=== PATIENT | female | born 1940 | race Caucasian/White ===

== ENCOUNTER 2019-01-04 14:35 | Inpatient (IN) ==
[2019-01-04] MEDS ORDERED: ULTRAM PO PRN (15:49)
[2019-01-04] MEDS ORDERED: NS 1,000 ML IV SCH (15:49)
[2019-01-04] MEDS: DUONEB (A & A) INH SCH ×2 (16:16→21:15)
[2019-01-04 16:37] LABS: BASO# 0.02 X1000 (0.0-0.2); BASO% 0.1 % (0.0-0.8); HEMATOCRIT 35.2 % (37.0-47.0); IMM GRAN# 0.13 X1000 (0.0-0.04); IMM GRAN% 0.5 % (0.0-0.5); LYMPH# 1.24 X1000 (1.2-3.4); LYMPH% 4.4 % (20.5-51.1); MCHC 31.3 g/dL (33-37); MCV 86.5 FL (81-99); MONO# 1.89 X1000 (0.11-0.59); MONO% 6.8 % (1.7-9.3); MPV 10.2 FL (7.4-10.4); NEUT# 24.72 X1000 (1.4-6.5); NEUT% 88.2 % (42.2-75.2); PLT 259 X1000 (130-400); RBC 4.07 XMIL (4.2-5.4); RDW 13.5 % (11.5-14.5)
[2019-01-04 16:49] LABS: AGAP 14; ALB/GLOB RATIO 0.8; ALBUMIN 3.8 g/dL (3.5-5.0); ALKALINE PHOSPHATASE 70 U/L (32-104); BUN 37 mg/dL (8-22); CALCIUM 8.8 mg/dL (8.8-10.2); CHLORIDE 98 mmol/L (98-107); COSMO 282; CREATININE 1.3 mg/dL (0.5-0.9); ESTIMATED GFR 39; GLUCOSE 125 mg/dL (70-104); GOT 30 U/L (10-30); GPT < 5 U/L (10-36); POTASSIUM 3.5 mmol/L (3.5-5.1); SODIUM 136 mmol/L (136-145); TCO2 24 mmol/L (25-35); TOTAL BILIRUBIN 0.75 mg/dL (0.20-1.00); TOTAL PROTEIN 8.3 g/dL (6.3-8.3)
[2019-01-04 16:53] LABS: BANDS 8 % (0-1); LYMPHS 3 % (21-51); MONO 3 % (1-9); SEGS 86 % (42-75)
[2019-01-04] MEDS: DOXYCYCLINE 100 MG in NS 250 ML IV SCH (18:31)
--- NOTE | 2019-01-04 20:24 | HISTORY AND PHYSICAL ---
PRIMARY CARE PHYSICIAN: Kwaku Márquez MD CHIEF COMPLAINT: Chills, weakness, fall. HISTORY OF PRESENT ILLNESS: An 78-year-old white female with a complicated past medical history presents for evaluation of above-mentioned symptoms. Current history of present illness began yesterday. The patient states she awoke in her usual state of health and went to sikh without incident. While in sikh, patient developed a chill. She attributed this to the lack of heat in the sikh. Because of this, chill, she was forced to leave sikh early and returned home. Upon returning home, patient states she turned her heat on and wrapped up in a blanket. The patient states she drifted to sleep for several hours. Upon waking, the patient noted a significant sweat. She attempted to rise from her seat and unfortunately fell. Upon falling, she struck her chest and buttocks. EMS was contacted and assisted her to her feet. She did not agree to emergency department evaluation. Since that time, patient notes having diffuse soreness including her low back, buttock, and chest. Because of her soreness, patient contacted my office, and an appointment was made. Upon arrival, further evaluation was pursued, especially in the setting of the acute chill. White blood cell count was noted to be grossly elevated. Chest x-ray suggested underlying pneumonia. Urinalysis also returned slightly abnormal. Because of her grossly elevated white blood cell count, patient will be admitted to the hospital for full evaluation and management. Of note, patient states last week she had cough and congestion. She treated this with Mucinex DM. Patient denies current symptoms. She denies fevers, chills, dysuria, hematuria, pyuria, or change in bowel movements. She notes mild shortness of breath. PAST MEDICAL HISTORY: 1. Allergic rhinitis. 2. Diverticulosis. 3. Depression. 4. History of dysmenorrhea status post BARBARA/BSO in the . 5. Metabolic syndrome. 6. Reflux disease. 7. Hypertension. 8. Hypertriglyceridemia. 9. Hyperlipidemia. 10. Menopause. 11. Mild cognitive dysfunction. 12. Osteoarthritis. 13. Mildly overweight. 14. History of colonic polyps. 15. History of restrictive lung disease per spirometry in 2005. 16. History of xerostomia. 17. History of multiple episodes of sialoadenitis. 18. History of a left lower extremity DVT with some chronic changes. CURRENT MEDICATIONS: 1. Celebrex 200 mg daily. 2. Citalopram 20 mg daily. 3. Claritin 10 mg daily as needed. 4. CoQ10 of 100 mg daily. 5. Lisinopril 40 mg in the morning and 20 mg in the evening. 6. Hydrochlorothiazide 12.5 mg daily. 7. Mucinex DM twice daily as needed. 8. Pravastatin 20 mg at bedtime. 9. Tramadol 50 mg 1 to 2 tablets 3 times daily as needed. ALLERGIES: Patient answered no known drug allergies. SOCIAL HISTORY: Patient previously smoked 1-1/2 packs per day for 23 years. She stopped in 1980. She denies alcohol or illicit drug use. 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 She exercises by walking 2 to 3 times a week as tolerated. FAMILY HISTORY: Patient's father passed at age 39 secondary to unknown causes. Patient's mother passed at age 85 with complications of Alzheimer's dementia. REVIEW OF SYSTEMS: A 12 point review of systems was performed. Pertinent positives and negatives are noted in History of Present Illness. PHYSICAL EXAMINATION: VITAL SIGNS: Temperature 98.0 degrees, heart rate 105, respirations 16, blood pressure is 128/72. GENERAL: Well nourished, well developed, no acute distress. HEENT: Normocephalic, atraumatic. Pupils equal, round, and reactive to light. Extraocular muscles intact. Sclerae anicteric. [place] conjunctivae. Oral and nasopharynx clear and without exudate. NECK: Supple. No lymphadenopathy. No thyromegaly. No bruits auscultated. CARDIOVASCULAR: Slightly tachycardic. Regular rhythm. No significant murmurs, rubs, or gallops. PULMONARY: Minimal crackles at the left base. Adequate air movement. ABDOMEN: Soft, nontender, nondistended. Positive bowel sounds. EXTREMITIES: Moves all extremities well. No significant clubbing, cyanosis, or edema. DERMATOLOGIC: Evaluation reveals no evidence of rash. NEUROLOGIC: Cranial nerves 2 through 12 grossly intact. Motor and sensory grossly intact. PSYCHOLOGIC: Examination is appropriate. DIAGNOSTIC STUDIES: White blood cell count 28.0, hemoglobin 11.0, hematocrit 35.2, platelet count 259,000. Sodium 136, potassium 3.5, chloride 98, bicarbonate 24, BUN 37, creatinine 1.3, glucose 125, calcium 8.8, total bilirubin 0.75, total protein 8.3, albumin 3.8, alkaline phosphatase 70, AST 30, ALT less than 5. Chest x-ray suggests infiltrate in the mid left lung field. Urinalysis is pending. ASSESSMENT AND PLAN: An 78-year-old white female with a complicated past medical history as noted presents for evaluation of a fall. Upon questioning, patient describes having a hard chill yesterday followed by sweat. The weakness precipitated her fall. I am more concerned with her underlying illness. With grossly elevated white blood cell count, aggressive intervention will be warranted. We will treat as described below. 1. Admit to General Medicine. 2. Pneumonia. The patient's chest x-ray is most consistent. We will aggressively manage patient with Zosyn and doxycycline therapy. We will check blood cultures and urine cultures. We will start patient on DuoNeb. We will encourage aspiration precautions. We will follow patient's clinical course closely. 3. Abnormal urinalysis. This was noted at the office. Patient should have adequate coverage with the Zosyn and doxycycline therapy. We will repeat urine and culture in the hospital. 4. Fall. Patient recently suffered a fall. She complains of low back pain as well as some chest discomfort. The chest discomfort is largely pleuritic, likely secondary to her pneumonia. Low back pain will be treated supportively. 5. Chronic lower extremity deep vein thrombosis (DVT). We discussed this in detail. We consider resuming Xarelto, but in the setting of patient's acute illness and recent falls, I am concerned that this may not be the best option. For now, we will treat patient with aspirin therapy. She will be treated with low-dose Lovenox while hospitalized. 6. Hypertension. We will continue lisinopril therapy. We will monitor blood pressure closely while hospitalized. 7. Hyperlipidemia. We will continue pravastatin therapy. 8. Osteoarthritis. We will continue as-needed tramadol. 9. Fluid, electrolytes, nutrition. We will monitor electrolytes. Normal saline at KVO. Regular diet. 10. Prophylaxis. Patient will be placed on subcutaneous Lovenox. cc: Kwaku Márquez MD
[2019-01-04] MEDS: ZOSYN 3.375 GM in NS 50 ML IV SCH (21:02)
[2019-01-04] MEDS: PRAVACHOL PO SCH (21:03)
[2019-01-04] MEDS: PRINIVIL PO SCH (21:03)
[2019-01-04 21:04] LABS: URINE SOURCE CLEAN CATCH
[2019-01-04 21:06] LABS: BILIRUBIN URINE NEGATIVE (NEGATIVE); BLOOD URINE SMALL (NEGATIVE); COLOR YELLOW; GLUCOSE URINE NEGATIVE (NEGATIVE); KETONE URINE TRACE mg/dL (NEGATIVE); LEUKOCYTES URINE LARGE (NEGATIVE); NITRITE URINE NEGATIVE (NEGATIVE); PH URINE 5.5; PROTEIN URINE 100 mg/dL (NEGATIVE); SP GRAVITY URINE 1.021; TURBIDITY URINE HAZY (CLEAR); UROBILINOGEN URINE NORMAL (NORMAL)
[2019-01-04 21:07] LABS: UR EPITHELIAL CELLS <10 /HPF (<10); URINE BACTERIA NEGATIVE /HPF; URINE RBC <10 /HPF (<10); URINE WBC TNTC /HPF (<10)
[2019-01-04] MEDS: TYLENOL PO PRN (21:07)
[2019-01-05] MEDS: ZOSYN 3.375 GM in NS 50 ML IV SCH ×3 (01:51→13:37)
[2019-01-05] MEDS: DOXYCYCLINE 100 MG in NS 250 ML IV SCH (03:28)
[2019-01-05] MEDS: TYLENOL PO PRN (04:42)
--- NOTE | 2019-01-05 07:45 | Diag Imaging Result Doc PS360 ---
EXAM: CHEST-2 VIEWS 01/05/2019 HISTORY: Pneumonia TECHNIQUE: PA and lateral chest COMMENT: There is a round opacity present in the left upper lobe and blunting of the left costophrenic angle with ill-defined opacity in the left base. This was not present on 10/09/2013, and is worse than on the previous study of 01/04/2019 from the [facility]. At that time there was less dense and extensive opacity in the perihilar portion of the left upper lobe and in the left base. There was some platelike atelectasis present in the right middle lobe at that time which is less apparent on today's study. IMPRESSION: Worsening pneumonia on the left. Advise follow-up until clear. Electronically signed by Aquiles Holly 01/05/2019 7:43 AM
[2019-01-05 08:51] LABS: BASO# 0.01 X1000 (0.0-0.2); EOS# 0.03 X1000 (0.0-0.7); EOS% 0.1 % (0.0-10.0); HEMOGLOBIN 9.9 g/dL (12.0-16.0); IMM GRAN# 0.12 X1000 (0.0-0.04); IMM GRAN% 0.5 % (0.0-0.5); LYMPH# 1.83 X1000 (1.2-3.4); LYMPH% 7.6 % (20.5-51.1); MCH 26.9 PG (27-31); MCHC 30.9 g/dL (33-37); MONO# 1.38 X1000 (0.11-0.59); MONO% 5.7 % (1.7-9.3); MPV 10.8 FL (7.4-10.4); NEUT# 20.77 X1000 (1.4-6.5); NEUT% 86.1 % (42.2-75.2); PLT 230 X1000 (130-400); RBC 3.68 XMIL (4.2-5.4); RDW 13.7 % (11.5-14.5); WBC 24.14 X1000 (4.8-10.8)
[2019-01-05] MEDS: PRINIVIL PO SCH ×2 (09:04→20:02)
[2019-01-05] MEDS: LOVENOX SUBQ SCH (09:04)
[2019-01-05] MEDS: CELEXA PO SCH (09:04)
[2019-01-05 10:05] LABS: BANDS 16 % (0-1); LYMPHS 6 % (21-51); SEGS 78 % (42-75)
[2019-01-05] MEDS: DUONEB (A & A) INH SCH ×3 (11:06→21:20)
--- NOTE | 2019-01-05 15:25 | INFECTIOUS DISEASE CONSULT REP ---
DATE: 01/05/2019 CONCLUSION: The patient has a gram-positive coccal pneumonia with what appears to be an associated gram-positive coccal bacteremia. 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 RECOMMENDATIONS: I have discontinued the current antibiotics and placed the patient on Rocephin and Zyvox. I have also ordered immunoglobulin levels. I explained to the patient that because she has a bloodstream infection, one or both of her total knee arthroplasties could have become infected, and therefore, I plan to treat the patient with 6 weeks of an IV antibiotic and possibly put her on a low dose of an oral antibiotic. Also, I have ordered immunoglobulin levels to rule out that the patient has a low immunoglobulin amount. DISCUSSION: The patient approximately 2 days ago started having cold sweats. She did not actually shake and she fell also. She also has had fever and has lost her appetite. Laboratory studies show that the chest x-ray shows a left upper lobe and left lower lobe opacity. Blood cultures are positive for gram-positive cocci. Urinalysis showed white cells but no bacteria. Liver function studies are normal. Creatinine is 1.3, GFR is 39. CBC shows a white count initially of 28,000 and today it is down to 24,140, with a hemoglobin of 9.9 and platelet count of 230,000. The urinalysis showed white cells but no bacteria. PAST MEDICAL HISTORY/REVIEW OF SYSTEMS: Eyes and Ears: She says she sees and hears okay. Neck: No stiffness. Respiratory: The patient has not been coughing or producing sputum. She has not been having chest pain. Cardiac: No chest pain or palpitations. Gastrointestinal: The patient has lost her appetite since she has been ill. She has not had any nausea, vomiting or diarrhea. Genitourinary: No dysuria or flank pain. Bones, Joints, Muscles: No swollen joints or muscle aches. Integument: No rashes. OBSTETRICAL/GYNECOLOGICAL HISTORY: She is a 2, para 2, abortus 0. She has had a hysterectomy and tubal ligation. PREVIOUS HOSPITALIZATIONS AND OPERATIONS: She has had labor and deliveries, a hysterectomy, a tubal ligation. She has had bilateral total knee arthroplasties, sinus surgeries, and an ankle fracture, which initially required surgery and metal was placed in it. More recently, the metal has all been removed. MEDICAL DISEASES: Positive for hypertension, hyperlipidemia. INFECTIOUS DISEASE HISTORY: Positive for recurrent pneumonia and sinusitis. The patient tells me that she had her influenza and pneumococcal immunizations this year. FAMILY HISTORY: Positive for hypertension, arthritis, and cancer. SOCIAL HISTORY: The patient is a . [place] She lives alone. ALLERGIES: She has only allergy to adhesive tape. She does not have any pets at home. HOME MEDICATIONS: Include the following: Celecoxib, citalopram, lisinopril/hydrochlorothiazide, pravastatin, and tramadol. PHYSICAL EXAMINATION: Vital Signs: Temperature is 97.6 degrees, pulse 88, respirations 16, blood pressure 124/58. Age: She is 78 years old. Weight and Height: She weighs 184 pounds. The patient is 5 feet 7 inches tall. General: This is an obese, elderly female. She is in no acute distress. Head/Eyes/Ears/Nose/Throat: She can hear my spoken words and see near objects. She does have dentures in place. She does not have any white patches or coating on her tongue. Her sinuses are not tender. Neck: No meningismus. Lungs: Clear to auscultation. Cardiovascular: Heart rate is regular. Abdomen: Soft and nontender. Extremities: The patient has bilateral leg edema, but no erythema. Neurologic: The patient is alert, awake. She can move her extremities. There is no tremor. Her memory as regarding her medical history seemed to be pretty good. Integument: No rash noted. Thank you for the consultation. cc: MD Kwaku Ball MD
[2019-01-05] MEDS: ROCEPHIN 2 GM in NS 50 ML IV SCH (15:45)
[2019-01-05] MEDS: ZYVOX PO SCH (18:21)
--- NOTE | 2019-01-05 19:51 | PROGRESS NOTE ---
DATE: 01/05/2019 SUBJECTIVE: Patient was originally seen this morning. At that time, the patient noted improvement from her admission condition. She noted decreasing cough and chest discomfort. Energy level was slightly improved. Over the course of the day, patient's overall condition continued to improve. This evening, patient states she is feeling even better. The patient is tolerating p.o. Interestingly, both blood cultures returned positive for gram-positive cocci. Dr. Reid has been consulted for further evaluation and management of bacteremia. The patient denies current fevers, chills, nausea, vomiting, or shortness of breath. OBJECTIVE: T-max 100.2 degrees, heart rate 88 to 118, respirations 16 to 20, blood pressure 116 to 131 over 45 to 58.General: No acute distress. Cardiovascular: Regular rate and rhythm. No significant murmurs, rubs, or gallops. Pulmonary: Clear to auscultation bilaterally. Abdomen: Soft, nontender, nondistended. Positive bowel sounds. Extremities: Moves all extremities well. No significant clubbing, cyanosis, or edema. Dermatologic: Evaluation reveals no evidence of rash. LABORATORY DATA: White blood cell count 24.14, hemoglobin 9.9, hematocrit 32.0, platelet count 230,000. Preliminary blood cultures positive for gram-positive cocci. Urine culture is pending. ASSESSMENT AND PLAN: 1. Pneumonia with associated bacteremia-patient was initially placed on Zosyn and doxycycline. Antibiotic intervention has been converted to Zyvox and Rocephin. Thus far, patient is tolerating well. White blood cell count has decreased from approximately 28,000 to 24,000. Clinically she is improving. We will follow the patient's blood cultures. We will determine long-term treatment thereafter. We will continue DuoNeb and aspiration precautions. 2. Abnormal urinalysis-the question is raised whether this is also of infectious consequence. We will continue treatment with antibiotics as described. We will follow cultures. 3. Recent fall-this likely was precipitated by weakness associated with her bacteremia. Clinically, her condition is improving. She denies any acute pain at present time. 4. Chronic lower extremity deep venous thrombosis-we have discussed this in detail. For now, Xarelto is not a good option secondary to her fall risk. We will continue aspirin therapy. 5. Hypertension-we will continue patient on her home medications. 6. Hyperlipidemia-we will continue pravastatin therapy. 7. Osteoarthritis-we will continue as-needed tramadol. 8. Disposition-at this point, patient continues to require long-term care in the hospital setting. We will plan discharge home once appropriate. cc: Kwaku Márquez MD
[2019-01-05] MEDS: PRAVACHOL PO SCH (20:02)
[2019-01-06] MEDS: ROCEPHIN 2 GM in NS 50 ML IV SCH ×2 (03:57→15:26)
[2019-01-06] MEDS: ZYVOX PO SCH ×3 (05:42→20:13)
[2019-01-06] MEDS: TYLENOL PO PRN (05:45)
[2019-01-06 09:57] LABS: BASO# 0.02 X1000 (0.0-0.2); BASO% 0.1 % (0.0-0.8); EOS# 0.14 X1000 (0.0-0.7); HEMATOCRIT 34.4 % (37.0-47.0); HEMOGLOBIN 10.7 g/dL (12.0-16.0); IMM GRAN# 0.04 X1000 (0.0-0.04); IMM GRAN% 0.3 % (0.0-0.5); LYMPH# 1.25 X1000 (1.2-3.4); LYMPH% 9.3 % (20.5-51.1); MCH 27.2 PG (27-31); MCHC 31.1 g/dL (33-37); MCV 87.3 FL (81-99); MONO# 0.72 X1000 (0.11-0.59); MONO% 5.4 % (1.7-9.3); MPV 11.2 FL (7.4-10.4); NEUT# 11.23 X1000 (1.4-6.5); NEUT% 83.9 % (42.2-75.2); PLT 268 X1000 (130-400); RBC 3.94 XMIL (4.2-5.4); RDW 13.6 % (11.5-14.5)
[2019-01-06] MEDS: PRINIVIL PO SCH ×2 (10:12→20:13)
[2019-01-06] MEDS: CELEXA PO SCH (10:12)
[2019-01-06] MEDS: LOVENOX SUBQ SCH (10:13)
[2019-01-06 10:35] LABS: CREATININE 0.9 mg/dL (0.5-0.9); POTASSIUM 3.3 mmol/L (3.5-5.1)
[2019-01-06] MEDS: DUONEB (A & A) INH SCH ×3 (10:37→22:29)
[2019-01-06] MEDS ORDERED: KLOR-CON PO ONE (17:23)
--- NOTE | 2019-01-06 18:34 | PROGRESS NOTE ---
DATE: 01/06/2019 SUBJECTIVE: Patient was originally seen this morning. At that time, patient noted continued improvement in her overall condition. She noted decreased shortness of breath. Her energy level was improving. Her p.o. intake was adequate. This evening, patient states she has experience further improvement. The patient worked with physical therapy today. She has been sitting up in a chair. Energy level continues to improve. She denies fevers, chills, nausea, vomiting, shortness of breath, or chest discomfort. OBJECTIVE: Vital signs: T-max 98.6 degrees, heart rate 77-103, respirations 15-21, blood pressure 139 to 150 over 66 to 71. General: No acute distress. Cardiovascular: Regular rate and rhythm. No significant murmurs, rubs, or gallops. Pulmonary: Clear to auscultation bilaterally. Abdomen: Soft, nontender, nondistended. Positive bowel sounds. Extremities: Moves all extremities well. No significant clubbing, cyanosis, or edema. Dermatologic: Evaluation reveals no evidence of rash. LABORATORY DATA: White blood cell count 13.40, hemoglobin 10.7, hematocrit 34.4, platelet count is 268,000. Sodium 139, potassium 3.3, chloride 104, bicarbonate 24, BUN 21, creatinine 0.9, glucose 112, calcium 9.0. ASSESSMENT AND PLAN: 1. Pneumonia with associated bacteremia - Blood cultures were positive for gram-positive cocci. Sputum culture is pending. I appreciate Dr. Reid' consultation. For now, we will continue Rocephin and Zyvox therapy. Further determination of antibiotic coverage will depend on culture data. 2. Abnormal urinalysis - Cultures thus far revealing less than 10,000 colony-forming units of 2 different gram-negative rods. We will continue treatment as above. 3. Recent falls - This was likely precipitated by weakness associated with bacteremia. X-ray from the office demonstrated an L1 compression fracture of unknown acuity. For now, we will continue supportive care. Symptoms are controlled. 4. Chronic lower extremity deep venous thrombosis - We have discussed this in detail. She is not a good candidate for Xarelto secondary to her fall risk. We will continue aspirin therapy. 5. Hypertension - We will continue patient on home medications. 6. Hyperlipidemia - We will continue pravastatin therapy. 7. Osteoarthritis - We will continue as-needed tramadol. DISPOSITION: At this point, patient continues to require senior living care in a hospital setting. We will plan discharge home once appropriate. cc: Kwaku Márquez MD
[2019-01-06] MEDS: DESYREL PO PRN (20:13)
[2019-01-06] MEDS: PRAVACHOL PO SCH (20:13)
--- NOTE | 2019-01-06 21:34 | INFECTIOUS DISEASE PROGRESS NO ---
DATE: 01/06/2019 PRESENT ILLNESS: Ms. Mclean is being treated for a left-sided pneumonia. She also has a gram- positive coccus growing in her blood, which has yet to be identified. There are gram-negative rods growing in her urine; however, she is asymptomatic. There is a leukocytosis, which is improving. MEDICATIONS: She is receiving Zyvox 600 mg by mouth every 12 hours and ceftriaxone 2 g IV every 12 hours. PHYSICAL EXAMINATION: Vital Signs: Temperature is 98.6, pulse rate 100, respiratory rate 15, blood pressure 139/70. O2 sat is 98% on 2 L nasal cannula. General: This is an elderly, chronically ill-appearing female. She is lying in bed currently in no acute distress. HEENT: Atraumatic, normocephalic. Oral mucous membranes are pink and moist. Conjunctivae are pink. Neck: Supple. Trachea is midline. Cardiovascular: Heart rate and rhythm are regular and tachycardic. Sinus tach on the monitor. Radial and pedal pulses are palpable bilaterally. Respiratory: Lung sounds have some rales noted in the bases bilaterally, as well as in the left upper lobe. Clear in the right upper and middle lobes. She does have a mild cough and is getting some sputum up at this point. Abdomen: Soft, round and nontender. Bowel sounds are active. Neurologic: She is awake, alert and oriented. Able to move around in the bed with assistance and ambulate in the costello with assistance. LABORATORY AND X-RAY: Today her white count is down to 13.4, hemoglobin 10.7, platelet count 268,000. Creatinine is 0.9. GFR is 60. Immunoglobulin show an IgA of 391 and an IgG of 1481. She has two different gram-negative rods growing in her urine culture and gram- positive cocci in both blood cultures. No imaging reports today. ASSESSMENT AND PLAN: Ms. Mclean is growing a gram-positive coccus in her blood and two gram-negative rods in her urine. The leukocytosis is continuing to improve. She is receiving Zyvox and Rocephin, both of which we will continue, pending final results of the cultures. The patient denies any complaints of dysuria, flank pain or changes in her urinary pattern. So, we will not need to treat her urine cultures at this point. However, Rocephin should cover anything she may be growing in her urine. A sputum culture had been previously ordered, but has not been obtained. Hopefully, if this can be obtained, then that will give us more information since she does have a left- sided pneumonia on chest x-ray done yesterday. These plans have been discussed with and recommended by Dr. Reid. COMORBIDITIES: For Ms. Mclean include that she is elderly, with gastroesophageal reflux disease and osteoarthritis. Dictated by DARRYL Hay for Nic Reid MD This chart was documented by, DARRYL Hay and accurately reflects the services performed, treatment plan and medical decisions as attested by the providers signature Nic Reid MD. cc: MD Kwaku Ball MD [facility]
[2019-01-07] MEDS: ROCEPHIN 2 GM in NS 50 ML IV SCH ×2 (03:14→14:08)
[2019-01-07] MEDS: LOVENOX SUBQ SCH (08:22)
[2019-01-07] MEDS: CELEXA PO SCH (08:22)
[2019-01-07] MEDS: PRINIVIL PO SCH ×2 (08:22→20:21)
[2019-01-07] MEDS: ZYVOX PO SCH (08:22)
--- NOTE | 2019-01-07 09:11 | Diag Imaging Result Doc PS360 ---
EXAM: CHEST-2 VIEWS 01/07/2019 HISTORY: Pneumonia TECHNIQUE: PA and lateral chest COMMENT: There are is volume loss and opacification present in the lower portion of the left upper lobe. This has improved since 01/05/2019. There is some increase in opacity present in the left lower lobe since the previous study however. IMPRESSION: Improved left upper lobe pneumonia, left lower lobe bronchopneumonia. Electronically signed by Aquiles Holly 01/07/2019 9:09 AM
[2019-01-07] MEDS: DUONEB (A & A) INH SCH ×3 (09:48→21:23)
--- NOTE | 2019-01-07 19:37 | INFECTIOUS DISEASE PROGRESS NO ---
DATE: 01/07/2019 PRESENT ILLNESS: Ms. Mclean is being treated for a left-sided pneumonia, bacteremia which is growing a Streptococcus pneumoniae, and a urinary tract infection with Proteus mirabilis and Klebsiella pneumoniae growing. MEDICATIONS: She is receiving Rocephin 2 g IV every 12 hours. Day 1 of her treatment will be the first day of her sterile blood cultures, which we have yet to obtain. PHYSICAL EXAMINATION: Vital Signs: Temperature is 98.5 degrees, pulse rate 94 , respiratory rate 19, blood pressure 140/69, oxygen saturation 98% on 2 L nasal cannula. General : Ms. Mclean is an elderly pleasant female, who is sitting up in a chair in no acute distress. HEENT: Atraumatic, normocephalic. Oral mucous membranes are pink and moist. Conjunctivae are pink. Neck: Supple. Trachea is midline. Cardiovascular: Heart rate and rhythm are regular and tachycardic, sinus tach on the monitor. Pedal and radial pulses are palpable bilaterally. She does have some trace lower extremity edema noted. Respiratory: Lung sounds have some mild rales and are diminished bilaterally. Abdomen: Soft, round, nontender. Bowel sounds are active. Neurologic: She is awake, alert, and oriented, and able to ambulate with assistance. LABORATORY AND X-RAY: No labs today. Her x-ray shows improved left upper lobe pneumonia, and a left lower lobe bronchopneumonia. ASSESSMENT AND PLAN: Ms. Mclean has a pneumococcal bacteremia. She is receiving Rocephin, which we will continue. Unfortunately, she is going to need 6 weeks of treatment due to her knee implants bilaterally. There is a set of blood cultures that have been ordered this morning. Hopefully, these will be sterile for our baseline set date for treatment. There is also a Proteus mirabilis and Klebsiella pneumoniae growing in her urine culture, however she has no symptoms of a urinary tract infection, so treatment is not required. These bacteria are covered by her present regimen, however. The plan is, if cultures are negative after 24 hours, we will consider a PICC insertion, and try to send her home. She lives by herself, but states she is very active, so we will order a home regimen of the Rocephin 2 g IV every 12 hours. Again, the first day of treatment will be the first day of negative blood cultures. I have talked to the patient about these plans, and explained to her about the PICC line, home health care, and the infusion company that will follow her. She feels that she can handle the treatment at this time. These plans have been discussed with and recommended by Dr. Reid. COMORBIDITIES: She is elderly, with osteoarthritis and gastroesophageal reflux dise Dictated by DARRYL Hay for Nic Reid MD This chart was documented by, DARRYL Hay and accurately reflects the services performed, treatment plan and medical decisions as attested by the providers signature Nic Reid MD. cc: MD Kwaku Ball MD [facility]ITAL[facility]ricia
[2019-01-07] MEDS: DESYREL PO PRN (20:21)
[2019-01-07] MEDS: PRAVACHOL PO SCH (20:21)
[2019-01-08] MEDS: ROCEPHIN 2 GM in NS 50 ML IV SCH ×2 (03:36→14:40)
--- NOTE | 2019-01-08 03:52 | PROGRESS NOTE ---
DATE: 01/07/2019 SUBJECTIVE: This morning, upon my arrival, the patient stated she was feeling well. She had rested well overnight. Her p.o. intake is adequate. Throughout the day, the patient continued to show improvement. She worked with physical therapy. She was up in the chair a vast majority of the day. This evening, the patient states she continues to improve. She denies fevers, chills, nausea, vomiting, shortness of breath, or chest discomfort. OBJECTIVE: Vital Signs: T-max 99.1 degrees, heart rate 88 to 104, respirations 16 to 22, blood pressure 134 to 157 over 63 to 112. General: Well-nourished, well-developed, in no acute distress. Cardiovascular: Regular rate and rhythm. No significant murmurs, rubs, or gallops. Pulmonary: Clear to auscultation bilaterally. Abdomen: Soft, nontender, nondistended. Positive bowel sounds. Extremities: Moves all extremities well. No significant clubbing, cyanosis, or edema. Dermatologic: Evaluation reveals no evidence of rash. LABORATORY DATA: None. IMAGING DATA: Chest x-ray: Improved left upper lobe pneumonia, left lower lobe bronchopneumonia. ASSESSMENT AND PLAN: 1. Pneumonia, with associated bacteremia - Blood cultures returned positive for pneumococcus. I appreciate Dr. Reid' consultation. We will transition patient to Rocephin therapy. Clinically, she continues to show improvement. 2. Urinary tract infection - Culture grew Proteus mirabilis and Klebsiella pneumoniae. Each of these are sensitive to Rocephin therapy. We will continue treatment as described above. 3. Recent falls - This likely was precipitated by weakness associated with bacteremia. X-ray suggested an L1 compression fracture of unknown acuity. At this point, patient is being treated symptomatically, with improvement. We will continue to follow clinically. 4. Chronic lower extremity deep venous thrombosis - The patient is being treated with Lovenox while hospitalized. We will continue aspirin therapy. We will consider whether transitioning to Xarelto is appropriate at discharge. 5. Hypertension - We will continue home medications. 6. Hyperlipidemia - We will continue pravastatin therapy. 7. Osteoarthritis - We will continue patient on as-needed tramadol. 8. Disposition - At this point, the patient continues to require [facility] care in a hospital setting. We will plan discharge home once appropriate. cc: Kwaku Márquez MD
[2019-01-08 08:07] LABS: BASO# 0.03 X1000 (0.0-0.2); BASO% 0.4 % (0.0-0.8); EOS# 0.26 X1000 (0.0-0.7); EOS% 3.3 % (0.0-10.0); HEMATOCRIT 31.5 % (37.0-47.0); HEMOGLOBIN 9.5 g/dL (12.0-16.0); IMM GRAN# 0.05 X1000 (0.0-0.04); IMM GRAN% 0.6 % (0.0-0.5); LYMPH# 1.73 X1000 (1.2-3.4); LYMPH% 21.8 % (20.5-51.1); MCH 26.7 PG (27-31); MCHC 30.2 g/dL (33-37); MCV 88.5 FL (81-99); MONO# 0.98 X1000 (0.11-0.59); MONO% 12.4 % (1.7-9.3); MPV 10.7 FL (7.4-10.4); NEUT# 4.87 X1000 (1.4-6.5); NEUT% 61.5 % (42.2-75.2); PLT 295 X1000 (130-400); RBC 3.56 XMIL (4.2-5.4); RDW 13.6 % (11.5-14.5); WBC 7.92 X1000 (4.8-10.8)
[2019-01-08 08:27] LABS: AGAP 9; BUN 16 mg/dL (8-22); CALCIUM 8.6 mg/dL (8.8-10.2); CHLORIDE 109 mmol/L (98-107); COSMO 290; CREATININE 0.7 mg/dL (0.5-0.9); ESTIMATED GFR > 60; GLUCOSE 96 mg/dL (70-104); POTASSIUM 3.8 mmol/L (3.5-5.1); SODIUM 145 mmol/L (136-145); TCO2 27 mmol/L (25-35)
[2019-01-08] MEDS: LOVENOX SUBQ SCH (09:34)
[2019-01-08] MEDS: CELEXA PO SCH (09:34)
[2019-01-08] MEDS: PRINIVIL PO SCH ×2 (09:34→20:44)
[2019-01-08] MEDS: DUONEB (A & A) INH SCH ×3 (09:45→20:35)
--- NOTE | 2019-01-08 15:32 | INFECTIOUS DISEASE PROGRESS NO ---
DATE: 01/08/2019 PRESENT ILLNESS: Ms. Mclean has a left-sided pneumonia and pneumococcal bacteremia. There is also an asymptomatic UTI growing Proteus mirabilis and Klebsiella pneumoniae. MEDICATIONS: She is receiving Rocephin 2 g IV every 12 hours. OBJECTIVE: Vital signs: Temperature is 98.2, pulse rate 105, respiratory rate 20, blood pressure 164/75, O2 saturation is 96% on 2 L nasal cannula. General: This is an elderly , pleasant female. She is lying in bed, currently in no acute distress. HEENT: Atraumatic and normocephalic. Oral mucous membranes are pink and moist. Conjunctivae are pink. Neck is supple. Trachea is midline. Respiratory: Lung sounds are diminished bilaterally, with mild rales noted on the left. Cardiovascular: Heart rate and rhythm are regular and tachycardic. Sinus tachycardia on the monitor. Radial and pedal pulses are +1 bilaterally. Abdomen: Soft, round and nontender. Bowel sounds are active. Neurologic: She is awake, alert and oriented and able to move around in the bed independently. DIAGNOSTIC DATA: Today her white count is 7.92, hemoglobin 9.5, platelet count 295,000. Creatinine is 0.7, estimated GFR is greater than 60. She grew a Proteus mirabilis and Klebsiella pneumoniae in her urine and a Streptococcus pneumoniae in her blood. No imaging reports today. ASSESSMENT AND PLAN: Ms. Mclean is receiving Rocephin for her left-sided pneumonia and bacteremia. We are awaiting sterile blood cultures. According to the lab, so far there has been no growth on the preliminary report. She will need 6 weeks of treatment with the Rocephin. Day 1 will be the first day of sterile blood cultures. She continues to say she is feeling better. Once we do get a set of sterile blood cultures, the plan will be to insert a PICC line and have the infusion company and home health to provide her with assistance with her home IV antibiotics. Her family is in the room, and I have talked with them at length about these plans which have also been discussed with and recommended by Dr. Reid. COMORBIDITIES: She is elderly, with gastroesophageal reflux disease and osteoarthritis. Dictated by DARRYL Hay for Nic Reid MD This chart was documented by, DARRYL Hay and accurately reflects the services performed, treatment plan and medical decisions as attested by the providers signature Nic Reid MD. cc: MD Kwaku Ball MD MTDD
[2019-01-08] MEDS ORDERED: ULTRAM PO PRN (16:45)
--- NOTE | 2019-01-08 17:24 | PROGRESS NOTE ---
DATE: 01/08/2019 SUBJECTIVE: Overall, patient continues to demonstrate clinical improvement. Yesterday, I attempted to discontinue oxygen per nasal cannula. Unfortunately, oxygen saturations dipped in the low 90s at rest. Oxygen was resumed. Chest x-ray yesterday suggested improved left upper lobe pneumonia, however left lower lobe bronchopneumonia showed progression. This morning, patient noted resting well overnight. Throughout the day today, patient remained active. She has had no evidence of fevers, chills, nausea, vomiting, or chest discomfort. Her energy level remains low but is improving. Her p.o. intake is adequate. This evening, patient is resting comfortably in bed. OBJECTIVE: T-max 98.3 degrees, heart rate 84 to 105, respirations 16 to 22, blood pressure 134 to 158 over 63 to 100.General: Well nourished, well developed, in no acute distress. Cardiovascular: Slightly tachycardic. Regular rhythm. No significant murmurs, rubs, or gallops. Pulmonary: Clear to auscultation bilaterally. Abdomen: Soft, nontender, nondistended. Positive bowel sounds. Extremities: Moves all extremities well. No significant clubbing, cyanosis, or edema. Dermatologic: Evaluation reveals no evidence of rash. LABORATORY DATA: White blood cell count 7.92, hemoglobin 9.5, hematocrit 31.5, platelet count 295,000. Sodium 145, potassium 3.8, chloride 109, bicarb 27, BUN 16, creatinine 0.7, glucose 96, calcium 8.6. ASSESSMENT AND PLAN: 1. Pneumococcal pneumonia with associated bacteremia-I appreciate Dr. Reid' consultation. As above, left upper lobe pneumonia has demonstrated improvement per chest x-ray. Left lower lobe bronchopneumonia has progressed since the initial chest x-ray. Clinically, however, patient is improving. For now, we will continue Rocephin and bronchodilators. We will continue to work toward titrating off of oxygen therapy per protocol. Blood cultures have been drawn. If these remain negative on Friday, we will plan to place a PICC line for home antibiotic intervention. 2. Urinary tract infection-interestingly, culture grew Proteus mirabilis and Klebsiella pneumoniae. We will continue Rocephin as each are sensitive. 3. Recent falls-this likely was precipitated by weakness associated with her acute illness. X- ray suggested an L1 compression fracture of unknown acuity. At this point, patient's symptoms are controlled. I suspect the L1 compression fracture may be old. We will continue symptomatic management. 4. Chronic lower extremity deep venous thrombosis-we will continue patient on prophylactic dose Lovenox. While patient is a significant fall risk, we will consider whether transitioning to low-dose Xarelto is appropriate at discharge. We will continue aspirin for now. 5. Hypertension-we will continue patient on her current regimen. Blood pressure is slightly elevated at present time. We will consider titration of medications prior to discharge. 6. Hyperlipidemia-we will continue pravastatin therapy. 7. Osteoarthritis-we will continue patient on as-needed tramadol. 8. Disposition-at this point, patient continues to require [facility] care in a hospital setting. We will plan discharge home once appropriate. cc: Kwaku Márquez MD
[2019-01-08] MEDS: PRAVACHOL PO SCH (20:44)
[2019-01-08] MEDS: DESYREL PO PRN (20:44)
[2019-01-09] MEDS: ROCEPHIN 2 GM in NS 50 ML IV SCH ×2 (02:59→14:40)
--- NOTE | 2019-01-09 09:38 | PROGRESS NOTE ---
DATE: 01/09/2019 SUBJECTIVE: The patient is sitting up in the chair beside the bed this morning. She is in a very good mood. She states that she is feeling better. She denies any respiratory difficulty, although she is still coughing up some sputum. Yesterday she walked in the [place] without her oxygen and did have some desaturation. She is currently on 2 L. OBJECTIVE: Vital Signs: 98.4, 106, 18, 173/83, 95% saturated on 2 L nasal cannula. General: The patient is alert, oriented, conversive and appropriate. Lungs: The patient's lungs are generally clear. I feel like the breath sounds are decreased in the bases. The x-rays were suggestive of left upper lobe process, but I really do not hear any noise in regard to that particular finding. There is no wheezing. Cardiovascular: Regular at 90 at the time of my examination. LABORATORY: White cell count is down to 7.9 and hemoglobin 9.5. ASSESSMENT AND PLAN: 1. The patient has documented pneumococcal pneumonia with bacteremia. There is no significant resistance pattern. She will remain on Rocephin for this. We are using bronchodilators and trying to wean down oxygen. She was encouraged to move about in the room, and to use her inspiratory spirometer. 2. The patient's UTI had a dual organism positive culture. It would appear that it is still sensitive to the Rocephin, and we will continue this medication which is already on board for pneumonia. 3. The patient has had recent falls. Although she was encouraged to move about in the room, she was instructed not to do so without assistance. 4. The patient has a history of chronic lower extremity DVT. She is on prophylactic Lovenox. She presents a significant fall risk, and we are holding off on low-dose of Xarelto until discharge. At that time, Dr. Márquez will make a decision in regard to permanent therapy. 5. The patient's blood pressure is higher than usual. It was very unclear on the reconciliation of home medications as to what she was actually taking as the mg doses did not make a whole bunch of sense. She is presently on lisinopril 20 twice a day. I am going to add 2.5 of amlodipine since her pressure has teetered upward. 6. The patient continues on pravastatin therapy for hyperlipidemia. 7. Osteoarthritis. The patient is on p.r.n. tramadol. 8. Hopefully, if we can wean down the patient's oxygen needs and continue to show improvement in her mobility then she will be discharged sometime at the beginning of the week. She has shown marked improvement in her white cell count but still, due to age and infirmity requires inpatient status. cc: MD Kwaku Valencia MD
[2019-01-09] MEDS: LOVENOX SUBQ SCH (09:43)
[2019-01-09] MEDS: CELEXA PO SCH (09:43)
[2019-01-09] MEDS: PRINIVIL PO SCH ×2 (09:44→20:05)
[2019-01-09] MEDS: NORVASC PO SCH (09:47)
[2019-01-09] MEDS: DUONEB (A & A) INH SCH ×3 (10:50→22:00)
[2019-01-09] MEDS: PRAVACHOL PO SCH (20:05)
[2019-01-09] MEDS: DESYREL PO PRN (20:05)
[2019-01-10] MEDS: ROCEPHIN 2 GM in NS 50 ML IV SCH ×2 (02:45→14:32)
[2019-01-10] MEDS: LOVENOX SUBQ SCH (08:39)
[2019-01-10] MEDS: CELEXA PO SCH (08:39)
[2019-01-10] MEDS: NORVASC PO SCH (08:40)
[2019-01-10] MEDS: PRINIVIL PO SCH ×2 (08:40→20:10)
--- NOTE | 2019-01-10 09:50 | PROGRESS NOTE ---
DATE: 01/10/2019 SUBJECTIVE: The patient is sitting in a chair, and expresses no complaints. She states emphatically that she feels better than yesterday. She was able to stir around the room with assistance, and did not have significant shortness of breath. Her oxygen levels have been stable. She has not had much of a cough at all. VITAL SIGNS: Temperature 98.3, pulse rate 100, blood pressure 147/73. PHYSICAL EXAMINATION: Lungs: Clear. There is no wheezing, no rales. She has good air movement. Extremities: No peripheral edema. ASSESSMENT AND PLAN: 1. The patient continues to improve from her left-sided pneumonia. She is basically asymptomatic and is recovering her strength. She is again encouraged to move about with assistance. I have written orders that allow her to take a shower. She requested this while I was in the room doing the interview. We will continue Rocephin. I would decrease the amount of breathing treatments to twice daily, and hopefully she will be able to go home early in the week if we can get her oxygen requirements down. 2. The patient continues with a urinary tract infection. She is asymptomatic from this. We will continue Rocephin, which should cover based on the culture positivity. 3. The patient's steadiness and strength seems to be improving. I again encouraged her to move about, but only with the assistance of a nurse or family member. 4. Chronic lower extremity deep venous thromboses. Aware. 5. The patient's blood pressure is improved modestly. She is still slightly tachycardic. We will need to monitor pulse and blood pressure going forward. 6. Hyperlipidemia. Aware. 7. Osteoarthritis. Aware. 8. The patient continues to require inpatient hospitalization. We are going to get some oxygen spot checks today on room air, and see what the minimal amount of oxygen will be. Hopefully, we can get her off oxygen altogether. cc: MD Kwaku Valencia MD
[2019-01-10] MEDS: DUONEB (A & A) INH SCH ×2 (10:53→21:20)
[2019-01-10] MEDS: PRAVACHOL PO SCH (20:10)
[2019-01-10] MEDS: DESYREL PO PRN (20:14)
[2019-01-10] MEDS: TYLENOL PO PRN (20:14)
[2019-01-11] MEDS: ROCEPHIN 2 GM in NS 50 ML IV SCH ×2 (03:41→15:38)
[2019-01-11 07:42] LABS: INR 0.88; PROTIME 12.7 Seconds (11.0-16.0)
[2019-01-11] MEDS: DUONEB (A & A) INH SCH (07:51)
[2019-01-11] MEDS: CELEXA PO SCH (08:02)
[2019-01-11] MEDS: PRINIVIL PO SCH (08:02)
[2019-01-11] MEDS: NORVASC PO SCH (08:02)
[2019-01-11] MEDS: LOVENOX SUBQ SCH (08:03)
[2019-01-11] MEDS ORDERED: NS 250 ML ONE (13:55)
--- NOTE | 2019-01-11 14:51 | Diag Imaging Result Doc PS360 ---
CHEST-2 VIEWS - 01/11/2019 INDICATION: low 02 sat COMPARISON: 01/07/2019 FINDINGS: There has been significant improvement in the left upper and lower lobe infiltrate. This is primarily in the left upper lobe. No new infiltrates. Heart size is normal. No pneumothorax or significant pleural effusion. IMPRESSION: Significant improvement in the left upper and lower lobe infiltrates compatible with bronchopneumonia. Electronically signed by Dev De 01/11/2019 2:49 PM
[2019-01-11 15:55] VITALS: BP 171/79
--- NOTE | 2019-01-11 18:49 | INFECTIOUS DISEASE PROGRESS NO ---
DATE: 01/11/2019 PRESENT ILLNESS: Ms. Mclean has a left-sided pneumonia which is improving and a pneumococcal bacteremia. She also has an asymptomatic urinary tract infection with a Proteus and Klebsiella growing. MEDICATIONS: Based on her sterile blood cultures, today is day #4 of treatment for her bacteremia. She is receiving Rocephin 2 g IV every 12 hours. PHYSICAL EXAMINATION: Vital Signs: Temperature is 98, pulse rate 94, respiratory rate 16, blood pressure 171/79, O2 sats 100% on 2 L nasal cannula. General: This is an elderly, fairly healthy- appearing female. She is sitting up in the chair in no acute distress. HEENT: Atraumatic, normocephalic. Oral mucous membranes are pink and moist. Conjunctivae are pink. Neck: Supple. Trachea is midline. Cardiovascular: Heart rate is regular. Respiratory: Lung sounds are clear in the upper lobes. She has scattered rales noted in the mid and bases bilaterally. Abdomen: Soft, round and nontender. Bowel sounds are active. Neurologic: She is awake , alert, oriented, and able to ambulate with assistance. Integumentary: There is a PICC line in place to her right upper arm. The site is without edema, erythema or drainage. LABORATORY AND X-RAY: No blood work today. Her blood previously grew a Streptococcus pneumoniae and her urine previously has had a Proteus mirabilis and Klebsiella pneumonia. Chest x-ray today shows significant improvement in the left upper and lower lobe infiltrates compatible with bronchopneumonia. ASSESSMENT AND PLAN: Ms. Mclean is being treated with Rocephin for her pneumonia and bacteremia. We have a set of sterile blood cultures and today is day 4 of treatment. She will need a total of 6 weeks due to the possibility of hematogenous infection to her bilateral knee replacements. At this point, she is hoping to be discharged. She has already received instruction from the infusion company as well as been provided with oxygen to take home. The PICC line has been put in to her right upper arm. Family is in the room and they are awaiting the arrival of Dr. Márquez for discharge orders. We will see her in the office in 3 weeks and then again at 6 weeks at the end of her treatment, at which time we should be able to take out her PICC and provide her with low- dose prophylactic antibiotics for prevention of any further infection. These plans have been discussed with and recommended by Dr. Reid. COMORBIDITIES: For Ms. Mclean include that she is elderly with gastroesophageal reflux disease and osteoarthritis. Dictated by DARRYL Hay for Nic Reid MD This chart was documented by, DARRYL Hay and accurately reflects the services performed, treatment plan and medical decisions as attested by the providers signature Nic Reid MD. cc: MD Kwaku Ball MD [facility] MED[facility] CENTERPatricia
--- NOTE | 2019-01-11 21:02 | DISCHARGE SUMMARY ---
ADMISSION DATE: 01/04/2019 DISCHARGE DATE: 01/11/2019 ADMISSION DIAGNOSIS: 1. Chills. 2. Weakness. 3. Falls. DISCHARGE DIAGNOSES: 1. Pneumococcal pneumonia with associated bacteremia. 2. Urinary tract infection with Proteus mirabilis and Klebsiella pneumoniae. 3. Hypoxemia secondary to pneumonia. 4. Recent falls. 5. Chronic lower extremity deep venous thrombosis, present on arrival. 6. Hypertension, present on arrival. 7. Hyperlipidemia, present on arrival . 8. Osteoarthritis, present on arrival. CONSULTATIONS: Dr. Reid with Infectious Disease was consulted for further evaluation and management of pneumococcal bacteremia PROCEDURES: 1. Chest x-ray was performed on 01/05/2019 which revealed a worsen pneumonia on the left. 2. Chest x-ray was performed on 01/11/2019 which revealed significant improvement in the left upper and lower lobe infiltrate compatible with bronchopneumonia. HISTORY AND PHYSICAL EXAMINATION: See admit note. PHYSICAL EXAMINATION PRIOR TO DISCHARGE: Temperature 98 degrees, heart rate 84, respirations 16, blood pressure is 171/79. General: Well nourished, well developed, no acute distress. Cardiovascular: Regular rate and rhythm. No significant murmurs, rubs, or gallops. Pulmonary: Clear to auscultation bilaterally. Abdomen: Soft, nontender, nondistended. Positive bowel sounds. Extremities: Moves all extremities well. No significant clubbing, cyanosis, or edema. Dermatologic: Evaluation reveals no evidence of rash. LABORATORY DATA: Prior to discharge: None. HOSPITAL COURSE: Patient was admitted as per history and physical examination. Hospital course per condition: 1. Pneumococcal pneumonia with associated bacteremia-upon admission, patient was noted to have fever, chills, and underlying pneumonia per chest x-ray. Blood cultures revealed pneumococcal bacteremia. The patient was initially placed on broad-spectrum antibiotics and ultimately was converted to Rocephin therapy per Dr. Reid' recommendation. The patient will complete 6 weeks of IV Rocephin therapy. Further intervention will be determined by Dr. Reid. We will remain aware that patient does have bilateral total knee arthroplasties. 2. Urinary tract infection-urinalysis revealed Proteus mirabilis and Klebsiella pneumoniae. Each of these are also sensitive to Rocephin therapy. We will continue this as an outpatient. 3. Hypoxemia-upon admission, patient was noted to have hypoxemia. Patient was placed on oxygen per protocol. She tolerated this well. We attempted to titrate off of oxygen therapy prior to discharge, although this proved unsuccessful. The patient will be discharged home on oxygen therapy. I anticipate within the next 4 to 6 weeks, we will be able to discontinue this after therapy. 4. Recent fall-this precipitated patient's visit to my office. Patient was noted to have an L1 compression fracture, however, this appears to have been old. With symptomatic management, patient's symptoms have improved. We will remain aware. 5. Chronic lower extremity deep venous thrombosis-we discussed this in great detail. Question was raised whether she would benefit from a long-term low-dose anticoagulation. Because of her extreme fall risk, we will discharge patient on an aspirin therapy. Once she completes antibiotic intervention, we will consider starting low-dose Xarelto. Once again, we will remain aware that she has a fall risk. 6. Hypertension-initially, patient's blood pressure was noted to be marginal while hospitalized. With time and fluids, patient did achieve improvement. The patient will resume her home antihypertensive regimen at discharge. We will follow this. 7. Hyperlipidemia-patient was maintained on pravastatin therapy while hospitalized. We will continue this as an outpatient. 8. Osteoarthritis-the patient's Celebrex was held while hospitalized. Tramadol therapy was continued. We will resume each of these at discharge. We will follow patient closely. DISCHARGE CONDITION: Stable. DISPOSITION: Discharged home. MEDICATIONS: 1. Tylenol 650 mg every 4 hours as needed. 2. Pravastatin 20 mg at bedtime. 3. Trazodone 50 mg at bedtime as needed. 4. Aspirin 325 mg daily. 5. Lisinopril 20 mg twice daily. 6. Lisinopril/hydrochlorothiazide 20/12.5 in the morning. 7. Rocephin 2 g q.12 hours for [address] Reid. 8. Celexa 20 mg daily. 9. Celebrex 200 mg daily. 10. Tramadol 50 mg 3 times daily. FOLLOWUP: The patient is to follow up with me in approximately 1 to 2 weeks. Patient has a followup with Dr. Reid as arranged. cc: Kwaku Márquez MD
== END 2019-01-11 19:43 | disposition home health service (06) | DRG 871 ==
LOC: DIRADM 14:35 → 3N 15:42
PROVIDERS: ADMIT Internal Medicine; ATTEND Internal Medicine
CPT/HCPCS: 36569; 71020; 71046; 80048; 80053; 81001; 82784; 85025; 85610; 87040; 87077; 87088; 87186; 94640; 94761; 94799; 97116; 97162; 97530; A9270; J0696; J1650; J2543; J7030; J7050

== ENCOUNTER 2019-07-19 03:58 | Inpatient (IN) ==
--- NOTE | 2019-07-12 10:31 | EKG Report ---
Test Performed on : 07/12/2019 10:15:15 AM Test Reason : PAT Blood Pressure : / mmHG Vent. Rate : 066 BPM Atrial Rate : 066 BPM P-R Int : 180 ms QRS Dur : 098 ms QT Int : 394 ms P-R-T Axes : 075 069 057 degrees QTc Int : 413 ms Normal sinus rhythm. Normal ECG When compared with ECG of 12-MAR-2018 10:17, No significant change was found Confirmed by Bola Hodges MD ([id number]) on 07/13/2019 12:06:48 PM
[2019-07-12 10:36] LABS: URINE SOURCE CLEAN CATCH
[2019-07-12 11:04] LABS: BILIRUBIN URINE NEGATIVE (NEGATIVE); BLOOD URINE NEGATIVE (NEGATIVE); COLOR YELLOW; GLUCOSE URINE NEGATIVE (NEGATIVE); KETONE URINE NEGATIVE (NEGATIVE); LEUKOCYTES URINE NEGATIVE (NEGATIVE); NITRITE URINE NEGATIVE (NEGATIVE); PROTEIN URINE NEGATIVE (NEGATIVE); SP GRAVITY URINE 1.013; TURBIDITY URINE CLEAR (CLEAR); UR EPITHELIAL CELLS <10 /HPF (<10); URINE BACTERIA NEGATIVE /HPF; URINE RBC <10 /HPF (<10); URINE WBC <10 /HPF (<10); UROBILINOGEN URINE NORMAL (NORMAL)
[2019-07-12 11:05] LABS: BASO# 0.03 X1000 (0.0-0.2); BASO% 0.5 % (0.0-0.8); EOS# 0.13 X1000 (0.0-0.7); EOS% 2.1 % (0.0-10.0); HEMOGLOBIN 11.9 g/dL (12.0-16.0); IMM GRAN# 0.02 X1000 (0.0-0.04); IMM GRAN% 0.3 % (0.0-0.5); LYMPH# 2.14 X1000 (1.2-3.4); LYMPH% 33.9 % (20.5-51.1); MCHC 31.3 g/dL (33-37); MCV 86.2 FL (81-99); MONO# 0.51 X1000 (0.11-0.59); MONO% 8.1 % (1.7-9.3); MPV 10.6 FL (7.4-10.4); NEUT# 3.49 X1000 (1.4-6.5); NEUT% 55.1 % (42.2-75.2); PLT 258 X1000 (130-400); RBC 4.41 XMIL (4.2-5.4); RDW 13.6 % (11.5-14.5); WBC 6.32 X1000 (4.8-10.8)
[2019-07-12 11:09] LABS: INR 0.91; PROTIME 12.3 Seconds (11.0-16.0); PTT 25.8 Seconds (22.3-41.8)
[2019-07-12 11:37] LABS: AGAP 10; ALBUMIN 4.2 g/dL (3.5-5.0); ALKALINE PHOSPHATASE 79 U/L (32-104); BUN 28 mg/dL (8-22); CALCIUM 9.4 mg/dL (8.8-10.2); CHLORIDE 101 mmol/L (98-107); COSMO 280; CREATININE 0.8 mg/dL (0.5-0.9); ESTIMATED GFR > 60; GLUCOSE 82 mg/dL (70-104); GOT 22 U/L (10-30); GPT 14 U/L (10-36); POTASSIUM 3.9 mmol/L (3.5-5.1); SODIUM 138 mmol/L (136-145); TCO2 27 mmol/L (25-35); TOTAL BILIRUBIN 0.26 mg/dL (0.20-1.00); TOTAL PROTEIN 8.6 g/dL (6.3-8.3)
[2019-07-12 12:10] LABS: HEMOGLOBIN A1C 5.8 % (4.8-6.0)
[2019-07-19] MEDS ORDERED: LYRICA ONE (06:20)
[2019-07-19] MEDS ORDERED: REGLAN ONE (06:20)
[2019-07-19] MEDS ORDERED: KEFZOL 1 GM/D5W 2 GM/100 ML IVPB ONE (06:20)
[2019-07-19] MEDS ORDERED: CELEBREX ONE (06:20)
[2019-07-19] MEDS ORDERED: PEPCID ONE (06:20)
[2019-07-19] MEDS ORDERED: LR 1,000 ML ONE (06:20)
[2019-07-19] MEDS ORDERED: COLACE ONE (06:20)
[2019-07-19] MEDS ORDERED: EXPAREL 1.3% ONE (06:23)
[2019-07-19] MEDS ORDERED: VANCOMYCIN ONE (06:23)
[2019-07-19] MEDS ORDERED: DURAMORPH ONE (06:23)
[2019-07-19] MEDS ORDERED: SODIUM CHLORIDE 0.9% ONE (06:23)
[2019-07-19] MEDS ORDERED: SENSORCAINE 0.25%/EPI 1:200,000 ONE (06:23)
[2019-07-19] MEDS ORDERED: NEOSPORIN G.U. IRRIGANT ONE (06:23)
[2019-07-19] MEDS ORDERED: TORADOL ONE (06:23)
[2019-07-19] MEDS ORDERED: CYKLOKAPRON 1,000 MG/NS 1,000 MG/100 ML IVPB ONE (06:28)
[2019-07-19] MEDS ORDERED: FENTANYL ONE (06:44)
[2019-07-19] MEDS ORDERED: DIPRIVAN 1% ONE (06:45)
[2019-07-19] MEDS ORDERED: QUELICIN (DOSE) ONE (06:45)
[2019-07-19] MEDS ORDERED: ROBINUL ONE (06:45)
[2019-07-19] MEDS ORDERED: XYLOCAINE-MPF 2% ONE (06:45)
[2019-07-19] MEDS ORDERED: DECADRON ONE (08:11)
[2019-07-19] MEDS ORDERED: ZOFRAN ONE (08:11)
[2019-07-19] MEDS ORDERED: OFIRMEV 1000 MG/ISOTONIC SOLN 1,000 MG/100 ML BOTTLE ONE (08:11)
[2019-07-19] MEDS ORDERED: EPHEDRINE ONE (08:23)
[2019-07-19 08:32] LABS: URINE SOURCE CATH
[2019-07-19 08:54] LABS: BILIRUBIN URINE NEGATIVE (NEGATIVE); BLOOD URINE NEGATIVE (NEGATIVE); COLOR YELLOW; GLUCOSE URINE NEGATIVE (NEGATIVE); KETONE URINE NEGATIVE (NEGATIVE); LEUKOCYTES URINE NEGATIVE (NEGATIVE); NITRITE URINE NEGATIVE (NEGATIVE); PH URINE 5.5; PROTEIN URINE NEGATIVE (NEGATIVE); SP GRAVITY URINE 1.011; TURBIDITY URINE CLEAR (CLEAR); UROBILINOGEN URINE NORMAL (NORMAL)
[2019-07-19 08:56] LABS: UR EPITHELIAL CELLS <10 /HPF (<10); URINE BACTERIA NEGATIVE /HPF; URINE RBC <10 /HPF (<10); URINE WBC <10 /HPF (<10)
[2019-07-19] MEDS ORDERED: DILAUDID ONE (09:07)
--- NOTE | 2019-07-19 10:03 | OPERATIVE NOTE ---
PROCEDURE DATE: 07/19/2019 PREOPERATIVE DIAGNOSIS: Left hip degenerative joint disease. POSTOPERATIVE DIAGNOSIS: Left hip degenerative joint disease. PROCEDURE PERFORMED: Left anterior total hip arthroplasty using [facility], a size 9 standard offset stem, with a -4 neck length, 36 mm ceramic head, a 52 mm hemispherical shell, with two 6.5 cancellous screws, and a 36 mm inside diameter liner. ANESTHESIA: Spinal. SURGEON: Faustino Adan M.D. GAMES MANAGER: DARRYL Garner. COMPLICATIONS: None. BLOOD LOSS: Minimal. DRAINS: Hemovac x1. DESCRIPTION OF PROCEDURE: The patient was brought to the operative suite and placed in the supine position. After successful administration of general anesthesia, the patient was placed on the OSI table in the usual position for a left hip. The left hip was then prepped and draped in the usual sterile fashion. A longitudinal incision was made, beginning 3 cm distal and 3 cm lateral to the anterior superior iliac spine, extending distally and slightly laterally 8 cm, dissected sharply through skin and subcutaneous tissue down to tensor fascia. Tensor fascia was incised, dissected bluntly down to deep tensor fascia. Deep tensor fascia was incised, and circumflex vessels electrocauterized, exposing the anterior capsule. A T capsulotomy was performed, exposing the femoral neck. The femoral neck cut was made with the oscillating saw. The femoral head was removed with power corkscrew. The labrum was resected. The acetabulum was serially reamed to a 52, to accept a 52 cup. The 52 cup was then driven into place in the proper amount of inclination and anteversion, and then two 6.5 cancellous screws were placed superiorly and posterior superiorly at 25 mm. The 36 mm inside diameter liner was then locked onto the shell. Attention was directed to the femur. It was externally rotated, extended, adducted, and elevated out of the wound with the hook on the OSI bed. The lateral neck was rongeured. The canal was serially broached to a size 9. A size 9 standard offset stem with a -4 neck length was trialed and found to be excellent fit and fill of the stem, excellent offset, excellent leg lengths. The trial was removed. The definitive stem was seated on the femur, and the ceramic head was seated onto the Cantrell taper. The hip was again reduced. It was again found to be in excellent position. The hip was copiously infiltrated with Exparel, including the posterior capsule, anterior capsule, anterior musculature, and subcutaneous tissue. A drain was placed deep to the tensor fascia, and buried around the stem neck. The anterior capsule was closed with 0 V-Loc suture. The hip was copiously irrigated with normal saline containing irrigant and Vashe irrigation, and then the tensor fascia was closed with 0 V-Loc. The skin edge was approximated with 2-0 Vicryl. Skin was closed with 4-0 Monocryl and Prineo, and a sterile dressing was applied. The patient tolerated the procedure well without complication. At the end of the procedure, all counts were correct x2. The patient was transferred to the recovery room in stable condition. cc: Faustino Adan MD [facility]
[2019-07-19] MEDS ORDERED: NS 1,000 ML ONE (10:18)
[2019-07-19] MEDS ORDERED: ZOFRAN IV PRN (11:30)
[2019-07-19] MEDS ORDERED: ZOFRAN ODT PO PRN (11:30)
[2019-07-19] MEDS ORDERED: OXY IR PO PRN (11:30)
[2019-07-19] MEDS ORDERED: MORPHINE IV PRN ×3 (11:30)
[2019-07-19] MEDS ORDERED: MILK OF MAGNESIA PO PRN (11:30)
[2019-07-19] MEDS: NS 1,000 ML IV SCH ×2 (11:30→23:24)
[2019-07-19] MEDS: TYLENOL PO SCH ×2 (13:33→20:08)
[2019-07-19] MEDS: ULTRAM PO SCH ×2 (13:37→20:09)
[2019-07-19] MEDS ORDERED: CYKLOKAPRON 1,000 MG/NS 1,000 MG/100 ML IVPB IV ONE (14:00)
[2019-07-19] MEDS: KEFZOL 1 GM/D5W 1 GM/50 ML IVPB IV SCH ×2 (15:43→23:24)
--- NOTE | 2019-07-19 17:05 | Diag Imaging Result Doc PS360 ---
EXAM: CHEST-1 VIEW 07/19/2019 HISTORY: REHAB TECHNIQUE: AP portable upright at 1653 COMMENT: The inspiration is less optimal than on 02/18/2019. There is platelike atelectasis in the mid right lung and left costophrenic angle and upper lobe. This is worse than on the previous study. IMPRESSION: Bilateral subsegmental atelectasis. Poor inspiration. Electronically signed by Aquiles Holly 07/19/2019 5:03 PM
[2019-07-19] MEDS: PERIDEX MT SCH (20:02)
[2019-07-19] MEDS: PRAVACHOL PO SCH (20:09)
[2019-07-19] MEDS: LYRICA PO SCH (20:09)
[2019-07-19] MEDS: COLACE PO SCH (20:09)
[2019-07-19] MEDS: CELEBREX PO SCH (20:11)
[2019-07-19] MEDS ORDERED: XARELTO PO SCH (21:00)
[2019-07-19] MEDS: PEN VK PO SCH (23:22)
[2019-07-20] MEDS: PRINIVIL PO SCH ×3 (00:32→19:55)
[2019-07-20] MEDS: TYLENOL PO SCH ×4 (03:44→19:53)
[2019-07-20] MEDS: ULTRAM PO SCH ×4 (03:44→19:53)
[2019-07-20] MEDS: NS 1,000 ML IV SCH ×3 (05:45→16:00)
[2019-07-20 05:53] LABS: HEMATOCRIT 25.9 % (37.0-47.0); HEMOGLOBIN 7.9 g/dL (12.0-16.0)
[2019-07-20 05:54] LABS: AGAP 8; BUN 25 mg/dL (8-22); CALCIUM 7.6 mg/dL (8.8-10.2); CHLORIDE 107 mmol/L (98-107); COSMO 283; CREATININE 0.8 mg/dL (0.5-0.9); ESTIMATED GFR > 60; GLUCOSE 113 mg/dL (70-104); POTASSIUM 4.7 mmol/L (3.5-5.1); SODIUM 139 mmol/L (136-145); TCO2 24 mmol/L (25-35)
[2019-07-20] MEDS ORDERED: SODIUM CHLORIDE 0.9% 10 ML ONE (07:12)
[2019-07-20] MEDS: XARELTO PO SCH (08:10)
[2019-07-20] MEDS: CELEBREX PO SCH ×2 (08:27→19:52)
[2019-07-20] MEDS: LYRICA PO SCH ×2 (08:27→19:54)
[2019-07-20] MEDS: PERIDEX MT SCH ×2 (08:27→19:52)
[2019-07-20] MEDS: PEN VK PO SCH ×2 (08:27→19:52)
[2019-07-20] MEDS: PEPCID PO SCH (08:28)
[2019-07-20] MEDS: COLACE PO SCH ×2 (08:28→19:54)
[2019-07-20] MEDS: CELEXA PO SCH (08:28)
[2019-07-20] MEDS: PRINZIDE 20/12.5MG PO SCH (08:33)
[2019-07-20] MEDS ORDERED: DECADRON IV ONE (09:00)
--- NOTE | 2019-07-20 09:12 | ORTHOPAEDICS PROGRESS NOTE ---
DATE: 07/20/2019 SUBJECTIVE: Brianne Mclean is an 79-year-old female who is postoperative day 1 from a left anterior total hip arthroplasty. She has no complaints. OBJECTIVE: Her wound is clean, dry, and intact. Her hemoglobin is 7.9. Her hematocrit is 25.9. She has had 200 out of her Hemovac, with 180 over the last 8 hours. She has walked 25 feet. Her foot is neurovascularly intact, with intact sensation to light touch, brisk capillary refill, and no sign of deep venous thrombosis. ASSESSMENT: Stable left total hip arthroplasty. PLAN: We will work on physical therapy today, and reassess her. She plans to go to [facility] later in the week, she states. We will work towards that goal, probably on . cc: Faustino Adan MD
--- NOTE | 2019-07-20 13:24 | ORTHOPAEDICS PROGRESS NOTE ---
DATE: 07/20/2019 SUBJECTIVE: Brianne Mclean is an 79-year-old female who is postoperative day 1 from a left anterior total hip arthroplasty. She has no significant complaints today. OBJECTIVE: She is a well-nourished female. She is alert, oriented, and cooperative with examination. Examination of her leg reveals the wound is clean, dry, intact without sign of infection. She has good early range of motion of her leg. Her hemoglobin is 7.8. Her hematocrit is 25.9. She has had her drain and Sr removed. She has walked 25 feet with physical therapy. ASSESSMENT: Stable left total hip arthroplasty. PLAN: We will continue working with physical therapy. The plan for her is rehab placement. We will continue to monitor her progress and plan on her going to rehab later in the week. cc: Faustino Adan MD
[2019-07-20] MEDS: PRAVACHOL PO SCH (19:53)
[2019-07-21] MEDS: OXY IR PO PRN ×3 (00:43→14:35)
[2019-07-21] MEDS: PRAVACHOL PO SCH ×2 (01:29→23:18)
[2019-07-21] MEDS: CELEBREX PO SCH ×3 (01:29→23:15)
[2019-07-21] MEDS: COLACE PO SCH ×3 (01:29→23:17)
[2019-07-21] MEDS: LYRICA PO SCH ×3 (01:29→23:15)
[2019-07-21] MEDS: PRINIVIL PO SCH ×3 (01:29→23:16)
[2019-07-21] MEDS: PEN VK PO SCH ×3 (01:30→23:18)
[2019-07-21] MEDS: PERIDEX MT SCH ×2 (01:30→10:10)
[2019-07-21 05:47] LABS: HEMATOCRIT 26.2 % (37.0-47.0); HEMOGLOBIN 7.9 g/dL (12.0-16.0)
[2019-07-21] MEDS: ULTRAM PO SCH ×3 (06:40→23:16)
[2019-07-21] MEDS: TYLENOL PO SCH ×3 (06:40→23:00)
[2019-07-21] MEDS: XARELTO PO SCH (06:41)
[2019-07-21] MEDS: PRINZIDE 20/12.5MG PO SCH (10:11)
[2019-07-21] MEDS: CELEXA PO SCH (10:12)
[2019-07-21] MEDS: PEPCID PO SCH (10:12)
[2019-07-21] MEDS: NS 1,000 ML IV SCH (16:17)
--- NOTE | 2019-07-21 21:38 | ORTHOPAEDICS PROGRESS NOTE ---
DATE: 07/21/2019 SUBJECTIVE: Brianne Mclean is an 79-year-old female who is postoperative day 2 from a left total hip arthroplasty. She has no complaints. OBJECTIVE: She is a well-developed, well-nourished female. She is alert and cooperative with exam. Examination of her hip reveals the incision is healing nicely. There is no sign of infection. She has good range of motion. She walked 250 feet. LABORATORY DATA: Her hemoglobin is 7.9, her hematocrit is 26.2. ASSESSMENT: Stable left total hip arthroplasty. PLAN: We will plan on her going to rehab tomorrow if cleared medically. cc: Faustino Adan MD
[2019-07-22 06:11] LABS: HEMATOCRIT 28.6 % (37.0-47.0); HEMOGLOBIN 8.7 g/dL (12.0-16.0)
[2019-07-22] MEDS: ULTRAM PO SCH (06:49)
[2019-07-22] MEDS: TYLENOL PO SCH ×2 (06:49→12:30)
[2019-07-22] MEDS: XARELTO PO SCH (06:49)
[2019-07-22] MEDS: PEN VK PO SCH (08:02)
[2019-07-22] MEDS: CELEBREX PO SCH (08:02)
[2019-07-22] MEDS: LYRICA PO SCH (08:03)
[2019-07-22] MEDS: CELEXA PO SCH (08:03)
[2019-07-22] MEDS: PEPCID PO SCH (08:03)
[2019-07-22] MEDS: COLACE PO SCH (08:03)
[2019-07-22] MEDS: PRINZIDE 20/12.5MG PO SCH (08:04)
[2019-07-22] MEDS: PERIDEX MT SCH (08:04)
[2019-07-22] MEDS: PRINIVIL PO SCH (08:05)
--- NOTE | 2019-07-22 08:41 | DISCHARGE SUMMARY ---
ADMISSION DATE: 07/19/2019 DISCHARGE DATE: 07/23/2019 DISCHARGE DIAGNOSIS: Left hip total hip arthroplasty. DISCHARGE MEDICATIONS: See discharge medication list. DISPOSITION: The patient is discharged to rehab with instructions for left anterior total hip arthroplasty protocol. Instructed to return for any signs or symptoms of infection or deep venous thrombosis. Instructed to return to see Dr. Adan next . Instructed to wash her wound with soap and water daily and keep a dry dressing of 4x4s over the gauze dressing. We are not to remove the gauze dressing. That will be removed by Dr. Adan in the office. HOSPITAL COURSE: On day of admission, patient underwent a left anterior total hip arthroplasty. Her postoperative course was unremarkable. At discharge she is afebrile tolerating a regular diet, ambulating well with physical therapy. Her wound is clean, dry, intact without sign of infection. Her calf is soft and her leg is neurovascularly intact. She is discharged to rehab in stable condition with instructions to follow up as described above. cc: Faustino Adan MD
[2019-07-22 12:10] VITALS: BP 122/59
== END 2019-07-22 12:53 | DRG 470 ==
LOC: SURHOLD 03:58 → 4N 07:45
PROVIDERS: ADMIT Orthopaedic Surgery; ATTEND Orthopaedic Surgery